=== PATIENT | female | born 1945 | race African-American/Black ===

== ENCOUNTER 2018-07-17 10:28 | Inpatient (IN) | payer OTHER ==
[2018-07-17 11:09] LABS: ADD MAN DIFF? NO
[2018-07-17 11:11] LABS: ABNORMAL IP MESSAGE 1; BASOPHILS % 0.4 % (0.0-2.0); EOSINOPHILS # 0.2 10^3/ul (0.0-0.5); EOSINOPHILS % 2.9 % (0.0-7.0); HEMATOCRIT 32.6 % (37.0-47.0); LYMPHOCYTES # 0.5 10^3/ul (0.8-2.9); LYMPHOCYTES % 7.9 % (15.0-51.0); MEAN CORPUSCULAR HEMOGLOBIN 30.4 pg (29.0-33.0); MEAN CORPUSCULAR HGB CONC 30.7 g/dl (32.0-37.0); MEAN CORPUSCULAR VOLUME 99.1 fl (82.0-101.0); MEAN PLATELET VOLUME 10.9 fl (7.4-10.4); MONOCYTES % 13.9 % (0.0-11.0); NEUTROPHIL # 5.1 10^3/ul (1.6-7.5); NEUTROPHILS % 74.6 % (39.0-77.0); PLATELET COUNT 152 10^3/UL (140-415); RED BLOOD COUNT 3.29 10^6/ul (4.20-5.40); RED CELL DISTRIBUTION WIDTH 16.8 % (11.5-14.5)
[2018-07-17 11:11] LABS: WHITE BLOOD COUNT 6.9 10^3/ul (4.8-10.8)
[2018-07-17 11:12] LABS: POSITIVE DIFF @See below
[2018-07-17 11:32] LABS: ALANINE AMINOTRANSFERASE 36 IU/L (13-69); ALBUMIN 3.4 g/dl (3.3-4.9); ALKALINE PHOSPHATASE 63 IU/L (42-121); ANION GAP 4 (5-13); ASPARTATE AMINO TRANSFERASE 33 IU/L (15-46); BILIRUBIN,INDIRECT 0.6 mg/dl (0-1.1); BILIRUBIN,TOTAL 0.6 mg/dl (0.2-1.3); BLOOD UREA NITROGEN 23 mg/dl (7-20); CARBON DIOXIDE 31 mmol/L (21-31); CHLORIDE 101 mmol/L (97-110); CREATININE 0.96 mg/dl (0.44-1.00); GLUCOSE 97 mg/dl (70-220); POTASSIUM 5.1 mmol/L (3.5-5.1); SODIUM 136 mmol/L (135-144)
[2018-07-17 11:37] LABS: INR 1.04; PROTIME 13.7 Sec (11.9-14.9); PT RATIO 1.1
[2018-07-17 11:38] LABS: PARTIAL THROMBOPLASTIN TIME 27.4 Sec (23.0-35.0)
[2018-07-17 11:42] LABS: TROPONIN-I 0.059 ng/ml (0.000-0.120)
[2018-07-17] MEDS ORDERED: LIDOCAINE 1% (MPF) 5 ML VIAL SC (12:00)
[2018-07-17] MEDS: CEFEPIME 2GM/50 ML (PMX) 50 ML IVPB (12:42)
[2018-07-17] MEDS: VANCOMYCIN 1 GM (PMX) 250 ML IVPB (13:14)
[2018-07-17] MEDS ORDERED: ONDANSETRON 4 MG INJ IV ×2 (13:30→15:00)
[2018-07-17] MEDS ORDERED: ACETAMINOPHEN 325 MG TAB PO ×3 (13:30→15:00)
[2018-07-17 13:39] LABS: UR CLARITY HAZY (CLEAR); UR COLOR YELLOW (YELLOW); URINE PH (Dip) 7 (5.0-9.0); URINE SPECIFIC GRAVITY (Dip) 1.005 (1.003-1.030)
[2018-07-17 13:40] LABS: ADD UMIC YES; UR ASCORBIC ACID NEGATIVE (NEGATIVE); UR BILIRUBIN (Dip) NEGATIVE (NEGATIVE); UR BLOOD (Dip) NEGATIVE (NEGATIVE); UR GLUCOSE (Dip) NEGATIVE (NEGATIVE); UR KETONES (Dip) NEGATIVE (NEGATIVE); UR LEUKOCYTE ESTERASE (Dip) NEGATIVE Leu/ul (NEGATIVE); UR NITRITE (Dip) NEGATIVE (NEGATIVE); UR UROBILINOGEN (Dip) NEGATIVE (NEGATIVE)
[2018-07-17 13:42] LABS: UR TOTAL PROTEIN (Dip) TRACE mg/dl (NEGATIVE)
[2018-07-17 13:54] LABS: UR SQUAMOUS EPITHELIAL CELL RARE /HPF (FEW)
[2018-07-17] MEDS ORDERED: ALBUTEROL/IPRATROPIUM (NEB) 3 ML AMP INH (14:00)
[2018-07-17] MEDS ORDERED: NON-FORMULARY/PATIENT OWN MED (Salmeterol Xinaf-Fluticasone* (Advair HFA*) 2 INH) IH (14:00)
[2018-07-17] MEDS ORDERED: BISACODYL (EC) 5 MG TAB PO (14:00)
[2018-07-17] MEDS ORDERED: LEVOFLOXACIN 750MG/D5W (PMX) 150 ML IVPB (14:30)
[2018-07-17] MEDS ORDERED: NACL 0.9% 3 ML SYG IV (15:00)
[2018-07-17] MEDS ORDERED: DOCUSATE SODIUM 100 MG CAP PO (15:00)
[2018-07-17] MEDS ORDERED: BISACODYL 10 MG SUPP PR (15:00)
[2018-07-17] MEDS ORDERED: MAGNESIUM HYDROXIDE 30ML CUP PO (15:00)
[2018-07-17] MEDS ORDERED: ACETAMINOPHEN 650 MG SUPP PR (15:00)
[2018-07-17] MEDS: hydrALAzine 20 MG INJ IV (15:48)
[2018-07-17] MEDS: HYDROCODONE/APAP (5/325) TAB PO (17:22)
[2018-07-17] MEDS: ALBUTEROL/IPRATROPIUM (NEB) 3 ML AMP HHN (17:39)
[2018-07-17] MEDS: LEVOFLOXACIN 750MG/D5W (PMX) 150 ML IVPB (18:37)
[2018-07-17] MEDS: morphine 2 MG INJ IV (19:58)
[2018-07-17] MEDS: ARFORMOTEROL TARTRATE 15MCG/2 ML AMP INH (20:39)
[2018-07-17] MEDS: BUDESONIDE (NEB) 0.5MG/2ML AMP INH (20:39)
[2018-07-17] MEDS: SENNA TAB PO (21:00)
[2018-07-17] MEDS: ONDANSETRON 4 MG TAB PO (21:29)
[2018-07-17] MEDS: traZODone 50 MG TAB PO (21:29)
[2018-07-17] MEDS: GABAPENTIN 300 MG CAP PO (21:30)
[2018-07-17] MEDS: ATORVASTATIN 80 MG TAB PO (21:30)
[2018-07-17] MEDS: BACLOFEN 10 MG TAB PO (21:30)
[2018-07-17] MEDS: APIXABAN 5 MG TABLET PO (21:30)
[2018-07-17 22:13] LABS: LACTIC ACID 0.9 mmol/L (0.5-2.0)
[2018-07-17] MEDS: DIPHENHYDRAMINE 25 MG CAP PO (23:32)
[2018-07-18] MEDS: GUAIFENESIN 20 MG/ML 5ML CUP PO (00:53)
[2018-07-18] MEDS: ALBUTEROL/IPRATROPIUM (NEB) 3 ML AMP HHN (01:33)
[2018-07-18] MEDS: PANTOPRAZOLE (EC) 40 MG TAB PO (06:26)
[2018-07-18] MEDS: HYDROCODONE/APAP (5/325) TAB PO ×2 (06:29→12:29)
[2018-07-18 07:13] LABS: ALANINE AMINOTRANSFERASE 33 IU/L (13-69); ALKALINE PHOSPHATASE 57 IU/L (42-121); ANION GAP 5 (5-13); ASPARTATE AMINO TRANSFERASE 36 IU/L (15-46); BILIRUBIN,INDIRECT 0.5 mg/dl (0-1.1); BILIRUBIN,TOTAL 0.5 mg/dl (0.2-1.3); BLOOD UREA NITROGEN 29 mg/dl (7-20); CALCIUM 8.8 mg/dl (8.4-10.2); CARBON DIOXIDE 26 mmol/L (21-31); CHLORIDE 106 mmol/L (97-110); CREATININE 0.89 mg/dl (0.44-1.00); GLUCOSE 84 mg/dl (70-220); MAGNESIUM 2.3 mg/dl (1.7-2.5); PHOSPHORUS 4.6 mg/dl (2.5-4.9); POTASSIUM 5.6 mmol/L (3.5-5.1); SODIUM 137 mmol/L (135-144)
[2018-07-18 07:14] LABS: ALBUMIN/GLOBULIN RATIO 1.25; CHOL/HDL RATIO 2.3 RATIO; CHOLESTEROL 143 mg/dl (100-200); HDL CHOLESTEROL 60 mg/dl (33-92); LDL CHOLESTEROL,CALCULATED 72 mg/dl; TOTAL PROTEIN 5.4 g/dl (6.1-8.1); TRIGLYCERIDES 55 mg/dl (0-149)
[2018-07-18 07:20] LABS: HEMOGLOBIN A1C 5.7 % (0-5.9)
[2018-07-18 07:29] LABS: FREE THYROXINE INDEX (Calc) 2.46 ug/ml (0.65-3.89); T3 UPTAKE 38.4 % (23.5-40.5); T4 (THYROXINE) 6.4 ug/dl (5.5-11.0)
[2018-07-18 07:43] LABS: THYROID STIMULATING HORMONE 0.926 MIU/L (0.465-4.680)
[2018-07-18] MEDS: AMLODIPINE 10 MG TAB PO (08:31)
[2018-07-18] MEDS: APIXABAN 5 MG TABLET PO ×2 (08:32→21:43)
[2018-07-18] MEDS: GABAPENTIN 300 MG CAP PO ×3 (08:32→21:47)
[2018-07-18] MEDS: CITALOPRAM 20 MG TAB PO (08:33)
[2018-07-18] MEDS: BACLOFEN 10 MG TAB PO ×3 (08:34→21:44)
[2018-07-18] MEDS: ASPIRIN (EC) 81 MG TAB PO (08:34)
[2018-07-18] MEDS: LOSARTAN 25 MG TAB PO (08:34)
[2018-07-18] MEDS: morphine 2 MG INJ IV (08:56)
[2018-07-18] MEDS: ARFORMOTEROL TARTRATE 15MCG/2 ML AMP INH ×2 (09:00→21:00)
[2018-07-18] MEDS ORDERED: LEVOFLOXACIN 750MG/D5W (PMX) 150 ML IVPB (09:00)
[2018-07-18] MEDS: BUDESONIDE (NEB) 0.5MG/2ML AMP INH ×2 (09:10→21:00)
[2018-07-18] MEDS: SODIUM POLYSTYRENE 15 GM KIT (POWDER + SORBITOL) PO (14:58)
[2018-07-18] MEDS: BALSAM PERU/CASTOR OIL 60 GM TUBE TOP (14:58)
[2018-07-18 19:22] LABS: POTASSIUM 5.2 mmol/L (3.5-5.1)
[2018-07-18] MEDS: SENNA TAB PO (21:44)
[2018-07-18] MEDS: ATORVASTATIN 80 MG TAB PO (21:44)
[2018-07-18] MEDS: traZODone 50 MG TAB PO (21:45)
[2018-07-19] MEDS: hydrALAzine 20 MG INJ IV (03:39)
[2018-07-19] MEDS: morphine 2 MG INJ IV ×2 (05:10→09:51)
[2018-07-19] MEDS: PANTOPRAZOLE (EC) 40 MG TAB PO (06:13)
[2018-07-19] MEDS: ARFORMOTEROL TARTRATE 15MCG/2 ML AMP INH ×2 (08:16→20:38)
[2018-07-19] MEDS: BUDESONIDE (NEB) 0.5MG/2ML AMP INH ×2 (08:16→20:38)
[2018-07-19] MEDS: LOSARTAN 25 MG TAB PO (09:38)
[2018-07-19] MEDS: ASPIRIN (EC) 81 MG TAB PO (09:38)
[2018-07-19] MEDS: CITALOPRAM 20 MG TAB PO (09:38)
[2018-07-19] MEDS: GABAPENTIN 300 MG CAP PO ×3 (09:38→21:52)
[2018-07-19] MEDS: AMLODIPINE 10 MG TAB PO (09:39)
[2018-07-19] MEDS: BACLOFEN 10 MG TAB PO ×3 (09:39→21:52)
[2018-07-19] MEDS: APIXABAN 5 MG TABLET PO ×2 (09:40→21:52)
[2018-07-19] MEDS: BALSAM PERU/CASTOR OIL 60 GM TUBE TOP (09:44)
[2018-07-19 12:02] LABS: ADD MAN DIFF? NO
[2018-07-19 12:05] LABS: ABNORMAL IP MESSAGE 1; BASOPHILS % 0.4 % (0.0-2.0); EOSINOPHILS # 0.4 10^3/ul (0.0-0.5); EOSINOPHILS % 4.7 % (0.0-7.0); HEMATOCRIT 32.5 % (37.0-47.0); HEMOGLOBIN 9.8 g/dl (12.0-16.0); LYMPHOCYTES # 0.6 10^3/ul (0.8-2.9); LYMPHOCYTES % 7.8 % (15.0-51.0); MEAN CORPUSCULAR HEMOGLOBIN 30.1 pg (29.0-33.0); MEAN CORPUSCULAR HGB CONC 30.2 g/dl (32.0-37.0); MEAN CORPUSCULAR VOLUME 99.7 fl (82.0-101.0); MONOCYTE # 1.2 10^3/ul (0.3-0.9); MONOCYTES % 16.2 % (0.0-11.0); NEUTROPHIL # 5.3 10^3/ul (1.6-7.5); NEUTROPHILS % 70.4 % (39.0-77.0); PLATELET COUNT 160 10^3/UL (140-415); RED BLOOD COUNT 3.26 10^6/ul (4.20-5.40)
[2018-07-19 12:05] LABS: WHITE BLOOD COUNT 7.5 10^3/ul (4.8-10.8)
[2018-07-19 12:07] LABS: POSITIVE DIFF @See below
[2018-07-19 12:30] LABS: ANION GAP 5 (5-13); BLOOD UREA NITROGEN 31 mg/dl (7-20); CARBON DIOXIDE 29 mmol/L (21-31); CHLORIDE 106 mmol/L (97-110); CREATININE 1.07 mg/dl (0.44-1.00); GLUCOSE 69 mg/dl (70-220); POTASSIUM 4.7 mmol/L (3.5-5.1); SODIUM 140 mmol/L (135-144)
[2018-07-19] MEDS: GUAIFENESIN 20 MG/ML 5ML CUP PO ×2 (12:35→22:09)
[2018-07-19] MEDS: ALBUTEROL/IPRATROPIUM (NEB) 3 ML AMP INH ×2 (13:29→20:38)
[2018-07-19] MEDS: HYDROCODONE/APAP (5/325) TAB PO (15:19)
[2018-07-19] MEDS: LEVOFLOXACIN 750MG/D5W (PMX) 150 ML IVPB (17:41)
[2018-07-19] MEDS: SENNA TAB PO (21:49)
[2018-07-19] MEDS: ATORVASTATIN 80 MG TAB PO (21:51)
[2018-07-19] MEDS: traZODone 50 MG TAB PO (21:52)
[2018-07-20] MEDS: hydrALAzine 20 MG INJ IV (02:43)
[2018-07-20] MEDS: ALBUTEROL/IPRATROPIUM (NEB) 3 ML AMP HHN (05:14)
[2018-07-20] MEDS: PANTOPRAZOLE (EC) 40 MG TAB PO (06:09)
[2018-07-20 06:21] LABS: ADD MAN DIFF? NO
[2018-07-20 06:28] LABS: WHITE BLOOD COUNT 5.7 10^3/ul (4.8-10.8)
[2018-07-20 06:28] LABS: BASOPHILS % 0.7 % (0.0-2.0); EOSINOPHILS # 0.3 10^3/ul (0.0-0.5); EOSINOPHILS % 4.6 % (0.0-7.0); HEMATOCRIT 32.5 % (37.0-47.0); HEMOGLOBIN 9.8 g/dl (12.0-16.0); LYMPHOCYTES # 0.7 10^3/ul (0.8-2.9); LYMPHOCYTES % 11.9 % (15.0-51.0); MEAN CORPUSCULAR HEMOGLOBIN 30.3 pg (29.0-33.0); MEAN CORPUSCULAR HGB CONC 30.2 g/dl (32.0-37.0); MEAN CORPUSCULAR VOLUME 100.6 fl (82.0-101.0); MEAN PLATELET VOLUME 11.3 fl (7.4-10.4); MONOCYTE # 0.9 10^3/ul (0.3-0.9); MONOCYTES % 16.1 % (0.0-11.0); NEUTROPHIL # 3.8 10^3/ul (1.6-7.5); NEUTROPHILS % 66.3 % (39.0-77.0); PLATELET COUNT 155 10^3/UL (140-415); RED BLOOD COUNT 3.23 10^6/ul (4.20-5.40)
[2018-07-20 07:04] LABS: ANION GAP 4 (5-13); BLOOD UREA NITROGEN 30 mg/dl (7-20); CALCIUM 8.7 mg/dl (8.4-10.2); CARBON DIOXIDE 29 mmol/L (21-31); CHLORIDE 107 mmol/L (97-110); CREATININE 1.04 mg/dl (0.44-1.00); GLUCOSE 77 mg/dl (70-220); POTASSIUM 4.9 mmol/L (3.5-5.1); SODIUM 140 mmol/L (135-144)
[2018-07-20] MEDS: ALBUTEROL/IPRATROPIUM (NEB) 3 ML AMP INH ×3 (08:00→20:45)
[2018-07-20] MEDS: ARFORMOTEROL TARTRATE 15MCG/2 ML AMP INH ×2 (08:07→20:45)
[2018-07-20] MEDS: BUDESONIDE (NEB) 0.5MG/2ML AMP INH ×2 (08:07→20:47)
[2018-07-20] MEDS: morphine 2 MG INJ IV ×2 (08:26→13:24)
[2018-07-20] MEDS: APIXABAN 5 MG TABLET PO ×2 (08:28→20:01)
[2018-07-20] MEDS: ASPIRIN (EC) 81 MG TAB PO (08:29)
[2018-07-20] MEDS: AMLODIPINE 10 MG TAB PO (08:29)
[2018-07-20] MEDS: GABAPENTIN 300 MG CAP PO ×3 (08:29→20:04)
[2018-07-20] MEDS: CITALOPRAM 20 MG TAB PO (08:30)
[2018-07-20] MEDS: BACLOFEN 10 MG TAB PO ×3 (08:30→20:01)
[2018-07-20] MEDS: LOSARTAN 25 MG TAB PO (08:30)
[2018-07-20] MEDS: HYDROCODONE/APAP (5/325) TAB PO ×2 (09:24→20:05)
[2018-07-20] MEDS: BALSAM PERU/CASTOR OIL 60 GM TUBE TOP (10:35)
[2018-07-20] MEDS: GUAIFENESIN 20 MG/ML 5ML CUP PO ×2 (13:20→17:13)
[2018-07-20] MEDS: ATORVASTATIN 80 MG TAB PO (20:01)
[2018-07-20] MEDS: traZODone 50 MG TAB PO (20:01)
[2018-07-20] MEDS: SENNA TAB PO (20:02)
[2018-07-20] MEDS: BENZONATATE 100 MG CAP PO (20:08)
[2018-07-21] MEDS: hydrALAzine 20 MG INJ IV (03:02)
[2018-07-21] MEDS: HYDROCODONE/APAP (5/325) TAB PO ×2 (03:18→09:47)
[2018-07-21] MEDS: ALBUTEROL/IPRATROPIUM (NEB) 3 ML AMP HHN (03:32)
[2018-07-21] MEDS: PANTOPRAZOLE (EC) 40 MG TAB PO (06:10)
[2018-07-21] MEDS: ALBUTEROL/IPRATROPIUM (NEB) 3 ML AMP INH ×3 (08:55→19:29)
[2018-07-21] MEDS: AMLODIPINE 10 MG TAB PO (09:00)
[2018-07-21] MEDS: LOSARTAN 25 MG TAB PO (09:00)
[2018-07-21] MEDS: BUDESONIDE (NEB) 0.5MG/2ML AMP INH ×2 (09:04→19:29)
[2018-07-21] MEDS: ARFORMOTEROL TARTRATE 15MCG/2 ML AMP INH ×2 (09:14→19:29)
[2018-07-21] MEDS: ASPIRIN (EC) 81 MG TAB PO (09:31)
[2018-07-21] MEDS: CITALOPRAM 20 MG TAB PO (09:32)
[2018-07-21] MEDS: APIXABAN 5 MG TABLET PO ×2 (09:32→21:00)
[2018-07-21] MEDS: BACLOFEN 10 MG TAB PO ×3 (09:32→21:00)
[2018-07-21] MEDS: GABAPENTIN 300 MG CAP PO ×3 (09:32→21:00)
[2018-07-21] MEDS: BALSAM PERU/CASTOR OIL 60 GM TUBE TOP (09:35)
[2018-07-21 09:41] LABS: ADD MAN DIFF? NO
[2018-07-21 09:46] LABS: WHITE BLOOD COUNT 6.1 10^3/ul (4.8-10.8)
[2018-07-21 09:46] LABS: BASOPHILS % 0.5 % (0.0-2.0); EOSINOPHILS # 0.3 10^3/ul (0.0-0.5); EOSINOPHILS % 4.1 % (0.0-7.0); HEMATOCRIT 36.4 % (37.0-47.0); HEMOGLOBIN 10.7 g/dl (12.0-16.0); LYMPHOCYTES # 0.6 10^3/ul (0.8-2.9); MEAN CORPUSCULAR HEMOGLOBIN 30.2 pg (29.0-33.0); MEAN CORPUSCULAR HGB CONC 29.4 g/dl (32.0-37.0); MEAN CORPUSCULAR VOLUME 102.8 fl (82.0-101.0); MEAN PLATELET VOLUME 11.7 fl (7.4-10.4); MONOCYTE # 0.8 10^3/ul (0.3-0.9); MONOCYTES % 13.1 % (0.0-11.0); NEUTROPHIL # 4.4 10^3/ul (1.6-7.5); PLATELET COUNT 173 10^3/UL (140-415); RED BLOOD COUNT 3.54 10^6/ul (4.20-5.40); RED CELL DISTRIBUTION WIDTH 16.5 % (11.5-14.5)
[2018-07-21 10:05] LABS: ANION GAP 9 (5-13); BLOOD UREA NITROGEN 40 mg/dl (7-20); CARBON DIOXIDE 26 mmol/L (21-31); CHLORIDE 102 mmol/L (97-110); CREATININE 1.35 mg/dl (0.44-1.00); GLUCOSE 76 mg/dl (70-220); POTASSIUM 5.2 mmol/L (3.5-5.1); SODIUM 137 mmol/L (135-144)
[2018-07-21] MEDS: SOD CHLORIDE 0.9% 1,000 ML IV (12:27)
[2018-07-21] MEDS: METHYLPREDNISOLONE 40 MG INJ IV ×2 (14:16→22:37)
[2018-07-21] MEDS: LEVOFLOXACIN 750 MG TABLET PO ×2 (17:31→17:36)
[2018-07-21] MEDS ORDERED: IOHEXOL 14.3 MG(I)/ML (ADULT) BTL PO (20:00)
[2018-07-21] MEDS: morphine 2 MG INJ IV (20:03)
[2018-07-21] MEDS: traZODone 50 MG TAB PO (21:00)
[2018-07-21] MEDS: ATORVASTATIN 80 MG TAB PO (21:00)
[2018-07-21] MEDS: SENNA TAB PO (21:00)
[2018-07-21 21:08] LABS: CARCINOEMBRYONIC ANTIGEN 7.4 ng/ml (0.0-5.0)
[2018-07-22 00:15] LABS: ADD UMIC NO; UR ASCORBIC ACID NEGATIVE (NEGATIVE); UR BILIRUBIN (Dip) NEGATIVE (NEGATIVE); UR BLOOD (Dip) NEGATIVE (NEGATIVE); UR BUDDING YEAST MODERATE /HPF (NONE SEEN); UR CLARITY SLIGHTLY CLOUDY (CLEAR); UR COLOR YELLOW (YELLOW); UR GLUCOSE (Dip) NEGATIVE (NEGATIVE); UR KETONES (Dip) NEGATIVE (NEGATIVE); UR LEUKOCYTE ESTERASE (Dip) NEGATIVE Leu/ul (NEGATIVE); UR NITRITE (Dip) NEGATIVE (NEGATIVE); UR RBC 1 /HPF (0-5); UR SPECIFIC GRAVITY (Dip) 1.016 (1.003-1.030); UR SQUAMOUS EPITHELIAL CELL FEW /HPF (FEW); UR TOTAL PROTEIN (Dip) NEGATIVE (NEGATIVE); UR UROBILINOGEN (Dip) NEGATIVE (NEGATIVE); UR WBC 5 /HPF (0-5)
[2018-07-22 01:40] LABS: CREATININE,URINE RANDOM 129.97 mg/dl (20-320)
[2018-07-22 01:40] LABS: SODIUM,URINE RANDOM 23 mmol/L (30-90)
[2018-07-22] MEDS: SOD CHLORIDE 0.9% 1,000 ML IV ×2 (01:48→21:28)
[2018-07-22] MEDS: morphine 2 MG INJ IV ×2 (02:35→14:28)
[2018-07-22] MEDS: hydrALAzine 20 MG INJ IV ×3 (02:40→19:49)
[2018-07-22] MEDS: LORAZEPAM 2 MG INJ IV ×2 (03:20→21:21)
[2018-07-22] MEDS: PANTOPRAZOLE (EC) 40 MG TAB PO (06:13)
[2018-07-22] MEDS: METHYLPREDNISOLONE 40 MG INJ IV ×3 (06:13→21:22)
[2018-07-22 07:19] LABS: ADD MAN DIFF? NO
[2018-07-22 07:28] LABS: ABNORMAL IP MESSAGE 1; BASOPHILS % 0.2 % (0.0-2.0); HEMATOCRIT 32.2 % (37.0-47.0); HEMOGLOBIN 9.8 g/dl (12.0-16.0); LYMPHOCYTES # 0.5 10^3/ul (0.8-2.9); LYMPHOCYTES % 8.8 % (15.0-51.0); MEAN CORPUSCULAR HEMOGLOBIN 29.8 pg (29.0-33.0); MEAN CORPUSCULAR HGB CONC 30.4 g/dl (32.0-37.0); MEAN CORPUSCULAR VOLUME 97.9 fl (82.0-101.0); MEAN PLATELET VOLUME 10.8 fl (7.4-10.4); MONOCYTE # 0.2 10^3/ul (0.3-0.9); MONOCYTES % 3.3 % (0.0-11.0); NEUTROPHIL # 5.2 10^3/ul (1.6-7.5); NEUTROPHILS % 87.4 % (39.0-77.0); PLATELET COUNT 161 10^3/UL (140-415); RED BLOOD COUNT 3.29 10^6/ul (4.20-5.40); RED CELL DISTRIBUTION WIDTH 16.1 % (11.5-14.5)
[2018-07-22 07:40] LABS: POSITIVE DIFF @See below
[2018-07-22 07:47] LABS: ANION GAP 6 (5-13); BLOOD UREA NITROGEN 35 mg/dl (7-20); CARBON DIOXIDE 26 mmol/L (21-31); CHLORIDE 106 mmol/L (97-110); CREATININE 0.97 mg/dl (0.44-1.00); GLUCOSE 131 mg/dl (70-220); POTASSIUM 4.8 mmol/L (3.5-5.1); SODIUM 138 mmol/L (135-144)
[2018-07-22] MEDS: ALBUTEROL/IPRATROPIUM (NEB) 3 ML AMP INH ×3 (08:04→19:17)
[2018-07-22] MEDS: BUDESONIDE (NEB) 0.5MG/2ML AMP INH ×2 (08:04→19:17)
[2018-07-22] MEDS: ARFORMOTEROL TARTRATE 15MCG/2 ML AMP INH ×2 (08:10→19:17)
[2018-07-22] MEDS: GABAPENTIN 300 MG CAP PO ×3 (11:19→21:15)
[2018-07-22] MEDS: APIXABAN 5 MG TABLET PO ×2 (11:19→21:12)
[2018-07-22] MEDS: ASPIRIN (EC) 81 MG TAB PO (11:19)
[2018-07-22] MEDS: BACLOFEN 10 MG TAB PO ×3 (11:20→21:12)
[2018-07-22] MEDS: CITALOPRAM 20 MG TAB PO (11:21)
[2018-07-22] MEDS: AMLODIPINE 10 MG TAB PO (11:21)
[2018-07-22] MEDS: BALSAM PERU/CASTOR OIL 60 GM TUBE TOP (11:22)
[2018-07-22] MEDS: GUAIFENESIN 20 MG/ML 5ML CUP PO (15:26)
[2018-07-22] MEDS: SENNA TAB PO (21:12)
[2018-07-22] MEDS: ATORVASTATIN 80 MG TAB PO (21:12)
[2018-07-22] MEDS: traZODone 50 MG TAB PO (21:14)
[2018-07-23] MEDS: HYDROCODONE/APAP (5/325) TAB PO ×3 (03:48→19:39)
[2018-07-23] MEDS: morphine 2 MG INJ IV (04:44)
[2018-07-23] MEDS: ALBUTEROL/IPRATROPIUM (NEB) 3 ML AMP HHN ×3 (05:09→16:15)
[2018-07-23] MEDS: METHYLPREDNISOLONE 40 MG INJ IV ×3 (06:12→22:00)
[2018-07-23] MEDS: PANTOPRAZOLE (EC) 40 MG TAB PO (06:12)
[2018-07-23] MEDS: ALBUTEROL/IPRATROPIUM (NEB) 3 ML AMP INH ×3 (08:00→19:43)
[2018-07-23] MEDS: BUDESONIDE (NEB) 0.5MG/2ML AMP INH ×2 (08:00→19:43)
[2018-07-23] MEDS: ARFORMOTEROL TARTRATE 15MCG/2 ML AMP INH ×2 (08:00→19:43)
[2018-07-23 08:08] LABS: ADD MAN DIFF? NO
[2018-07-23 08:23] LABS: ABNORMAL IP MESSAGE 1; HEMATOCRIT 33.6 % (37.0-47.0); HEMOGLOBIN 10.3 g/dl (12.0-16.0); LYMPHOCYTES # 0.4 10^3/ul (0.8-2.9); LYMPHOCYTES % 7.8 % (15.0-51.0); MEAN CORPUSCULAR HEMOGLOBIN 29.7 pg (29.0-33.0); MEAN CORPUSCULAR HGB CONC 30.7 g/dl (32.0-37.0); MEAN CORPUSCULAR VOLUME 96.8 fl (82.0-101.0); MEAN PLATELET VOLUME 10.9 fl (7.4-10.4); MONOCYTE # 0.6 10^3/ul (0.3-0.9); MONOCYTES % 11.2 % (0.0-11.0); NEUTROPHIL # 4.1 10^3/ul (1.6-7.5); NEUTROPHILS % 80.4 % (39.0-77.0); PLATELET COUNT 149 10^3/UL (140-415); RED BLOOD COUNT 3.47 10^6/ul (4.20-5.40); RED CELL DISTRIBUTION WIDTH 16.7 % (11.5-14.5)
[2018-07-23 08:23] LABS: WHITE BLOOD COUNT 5.1 10^3/ul (4.8-10.8)
[2018-07-23] MEDS: hydrALAzine 20 MG INJ IV (08:23)
[2018-07-23 08:25] LABS: POSITIVE DIFF @See below
[2018-07-23 08:47] LABS: ANION GAP 7 (5-13); BLOOD UREA NITROGEN 35 mg/dl (7-20); CALCIUM 9.1 mg/dl (8.4-10.2); CARBON DIOXIDE 26 mmol/L (21-31); CHLORIDE 105 mmol/L (97-110); CREATININE 0.84 mg/dl (0.44-1.00); GLUCOSE 140 mg/dl (70-220); POTASSIUM 4.8 mmol/L (3.5-5.1); SODIUM 138 mmol/L (135-144)
[2018-07-23] MEDS: CITALOPRAM 20 MG TAB PO (09:04)
[2018-07-23] MEDS: ASPIRIN (EC) 81 MG TAB PO (09:05)
[2018-07-23] MEDS: APIXABAN 5 MG TABLET PO ×2 (09:05→21:08)
[2018-07-23] MEDS: GABAPENTIN 300 MG CAP PO ×3 (09:05→21:07)
[2018-07-23] MEDS: BACLOFEN 10 MG TAB PO ×3 (09:05→21:07)
[2018-07-23] MEDS: AMLODIPINE 10 MG TAB PO (09:05)
[2018-07-23] MEDS: BALSAM PERU/CASTOR OIL 60 GM TUBE TOP (09:06)
[2018-07-23] MEDS: traMADol 50 MG TAB PO (12:16)
[2018-07-23] MEDS: BENZONATATE 100 MG CAP PO ×2 (13:40→21:07)
[2018-07-23] MEDS: GUAIFENESIN 20 MG/ML 5ML CUP PO (19:48)
[2018-07-23] MEDS ORDERED: LORAZEPAM 0.5 MG TAB PO (20:00)
[2018-07-23] MEDS: traZODone 50 MG TAB PO (21:07)
[2018-07-23] MEDS: ATORVASTATIN 80 MG TAB PO (21:07)
[2018-07-23] MEDS: SENNA TAB PO (21:07)
[2018-07-23] MEDS: LEVOFLOXACIN 750 MG TABLET PO (21:14)
[2018-07-23] MEDS: SOD CHLORIDE 0.9% 1,000 ML IV (21:28)
[2018-07-25 14:57] LABS: CREATININE, RANDOM URINE 121 mg/dL (20-275); MICROALBUMIN/CREATININE RATIO 17 (<30)
== END 2018-07-23 22:45 | DRG 193 ==
LOC: PP2 22:17 → E/R 10:28 → 5EC 07-18 01:04 → PP2 07-18 01:04 → 5EC 13:27 → PP2 07-18 01:04 → 5EC 07-18 01:12 → PP2 16:15
DX: J18.9 Pneumonia, unspecified organism (principal); J96.21 Acute and chronic respiratory failure with hypoxia; N17.9 Acute kidney failure, unspecified; J44.1 Chronic obstructive pulmonary disease with (acute) exacerbation; Z95.0 Presence of cardiac pacemaker; J44.9 Chronic obstructive pulmonary disease, unspecified; I10 Essential (primary) hypertension; F32.9 Major depressive disorder, single episode, unspecified; E78.5 Hyperlipidemia, unspecified; I25.10 Atherosclerotic heart disease of native coronary artery without angina pectoris; K21.9 Gastro-esophageal reflux disease without esophagitis; Z87.891 Personal history of nicotine dependence; E87.5 Hyperkalemia; R91.8 Other nonspecific abnormal finding of lung field; J20.9 Acute bronchitis, unspecified; Z85.118 Personal history of other malignant neoplasm of bronchus and lung; I69.931 Monoplegia of upper limb following unspecified cerebrovascular disease affecting right dominant side
CPT/HCPCS: 71045; 71250; 73080-LT; 73110-LT; 74176; 80048; 80053; 80061; 81001; 81003; 82043; 82378; 83036; 83605; 83735; 84100; 84132; 84155; 84300; 84436; 84443; 84479; 84484; 85025; 85610; 85730; 87040-91; 87081; 87086; 92610; 93005; 93306; 94640; 94664; 94667; 94668; 96374; 96375; 97116; 97162; 97530; 99285-25

== ENCOUNTER 2018-09-15 20:40 | Inpatient (IN) | payer MEDICARE, OTHER ==
[2018-09-15 21:37] LABS: ADD MAN DIFF? NO
[2018-09-15 21:40] LABS: BASOPHILS % 0.7 % (0.0-2.0); EOSINOPHILS # 0.8 10^3/ul (0.0-0.5); EOSINOPHILS % 13.2 % (0.0-7.0); HEMATOCRIT 32.8 % (37.0-47.0); HEMOGLOBIN 9.7 g/dl (12.0-16.0); LYMPHOCYTES # 0.8 10^3/ul (0.8-2.9); LYMPHOCYTES % 13.8 % (15.0-51.0); MEAN CORPUSCULAR HEMOGLOBIN 27.8 pg (29.0-33.0); MEAN CORPUSCULAR HGB CONC 29.6 g/dl (32.0-37.0); MEAN PLATELET VOLUME 11.3 fl (7.4-10.4); MONOCYTE # 0.7 10^3/ul (0.3-0.9); MONOCYTES % 11.4 % (0.0-11.0); NEUTROPHIL # 3.7 10^3/ul (1.6-7.5); NEUTROPHILS % 60.6 % (39.0-77.0); NUCLEATED RED BLOOD CELLS% 0.3 /100WBC (0.0-0.0); PLATELET COUNT 145 10^3/UL (140-415); RED BLOOD COUNT 3.49 10^6/ul (4.20-5.40); RED CELL DISTRIBUTION WIDTH 17.6 % (11.5-14.5)
[2018-09-15 21:40] LABS: WHITE BLOOD COUNT 6.1 10^3/ul (4.8-10.8)
[2018-09-15 21:58] LABS: ANION GAP 4 (5-13); BLOOD UREA NITROGEN 31 mg/dl (7-20); CALCIUM 8.8 mg/dl (8.4-10.2); CARBON DIOXIDE 28 mmol/L (21-31); CHLORIDE 110 mmol/L (97-110); CREATININE 0.85 mg/dl (0.44-1.00); GLUCOSE 91 mg/dl (70-220); SODIUM 142 mmol/L (135-144)
[2018-09-15 22:10] LABS: TROPONIN-I 0.061 ng/ml (0.000-0.120)
[2018-09-15] MEDS ORDERED: ACETAMINOPHEN 325 MG TAB PO (23:00)
[2018-09-15] MEDS ORDERED: ONDANSETRON 4 MG INJ IV (23:00)
[2018-09-15] MEDS: CEFEPIME 1GM/50 ML (PMX) 50 ML IVPB (23:06)
[2018-09-15] MEDS: AMLODIPINE 10 MG TAB PO (23:50)
[2018-09-15] MEDS: VANCOMYCIN 1 GM (PMX) 250 ML IVPB (23:53)
[2018-09-16] MEDS: ALBUTEROL 0.5% (NEB) 2.5 MG/0.5 ML AMP INH (01:50)
[2018-09-16] MEDS: hydrALAzine 20 MG INJ IV (01:58)
[2018-09-16] MEDS ORDERED: NACL 0.9% 3 ML SYG IV (02:00)
[2018-09-16] MEDS ORDERED: NON-FORMULARY/PATIENT OWN MED (Salmeterol Xinaf-Fluticasone* (Advair HFA*) 2 INH) IH (02:00)
[2018-09-16] MEDS: HALOPERIDOL 5 MG INJ IM (04:42)
[2018-09-16] MEDS: LORAZEPAM 2 MG INJ IV (05:35)
[2018-09-16 06:26] LABS: ADD MAN DIFF? NO
[2018-09-16 06:32] LABS: WHITE BLOOD COUNT 18.5 10^3/ul (4.8-10.8)
[2018-09-16 06:32] LABS: ABNORMAL IP MESSAGE 1; BASOPHIL # 0.1 10^3/ul (0.0-0.1); BASOPHILS % 0.4 % (0.0-2.0); EOSINOPHILS # 0.4 10^3/ul (0.0-0.5); EOSINOPHILS % 2.4 % (0.0-7.0); HEMATOCRIT 38.9 % (37.0-47.0); HEMOGLOBIN 11.1 g/dl (12.0-16.0); LYMPHOCYTES # 0.9 10^3/ul (0.8-2.9); LYMPHOCYTES % 4.9 % (15.0-51.0); MEAN CORPUSCULAR HEMOGLOBIN 27.2 pg (29.0-33.0); MEAN CORPUSCULAR HGB CONC 28.5 g/dl (32.0-37.0); MEAN CORPUSCULAR VOLUME 95.3 fl (82.0-101.0); MONOCYTE # 1.2 10^3/ul (0.3-0.9); MONOCYTES % 6.4 % (0.0-11.0); NEUTROPHIL # 15.8 10^3/ul (1.6-7.5); NEUTROPHILS % 85.5 % (39.0-77.0); NUCLEATED RED BLOOD CELLS% 0.2 /100WBC (0.0-0.0); PLATELET COUNT 188 10^3/UL (140-415); RED BLOOD COUNT 4.08 10^6/ul (4.20-5.40); RED CELL DISTRIBUTION WIDTH 17.6 % (11.5-14.5)
[2018-09-16 06:53] LABS: POSITIVE DIFF @See below
[2018-09-16 07:02] LABS: ALANINE AMINOTRANSFERASE 43 IU/L (13-69); ALBUMIN/GLOBULIN RATIO 1.25; ALKALINE PHOSPHATASE 126 IU/L (42-121); ANION GAP 9 (5-13); ASPARTATE AMINO TRANSFERASE 46 IU/L (15-46); BILIRUBIN,INDIRECT 0.6 mg/dl (0-1.1); BILIRUBIN,TOTAL 0.6 mg/dl (0.2-1.3); BLOOD UREA NITROGEN 25 mg/dl (7-20); CALCIUM 9.3 mg/dl (8.4-10.2); CARBON DIOXIDE 26 mmol/L (21-31); CHLORIDE 109 mmol/L (97-110); CREATININE 0.68 mg/dl (0.44-1.00); GLUCOSE 144 mg/dl (70-220); MAGNESIUM 2.1 mg/dl (1.7-2.5); POTASSIUM 4.1 mmol/L (3.5-5.1); SODIUM 144 mmol/L (135-144); TOTAL PROTEIN 7.2 g/dl (6.1-8.1)
[2018-09-16] MEDS ORDERED: VANCOMYCIN IV PER PHARMACY XX (08:00)
[2018-09-16] MEDS: PANTOPRAZOLE (EC) 40 MG TAB PO (08:25)
[2018-09-16] MEDS ORDERED: PENDING SANTYL ORDER FOR WOUND CARE XX (08:30)
[2018-09-16] MEDS: VANCOMYCIN 500 MG (PMX) 100 ML IVPB ×2 (08:42→21:02)
[2018-09-16] MEDS: ALBUTEROL/IPRATROPIUM (NEB) 3 ML AMP INH ×3 (08:59→19:49)
[2018-09-16] MEDS: CITALOPRAM 20 MG TAB PO (09:00)
[2018-09-16] MEDS: APIXABAN 5 MG TABLET PO ×2 (09:00→21:00)
[2018-09-16] MEDS: LOSARTAN 25 MG TAB PO (09:00)
[2018-09-16] MEDS: AMLODIPINE 10 MG TAB PO (09:00)
[2018-09-16] MEDS: ASPIRIN (EC) 81 MG TAB PO (09:00)
[2018-09-16] MEDS: BACLOFEN 10 MG TAB PO ×3 (09:00→21:00)
[2018-09-16] MEDS ORDERED: CEFEPIME 1GM/50 ML (PMX) 50 ML IVPB (09:00)
[2018-09-16] MEDS: RISPERIDONE 0.25 MG TAB PO (09:00)
[2018-09-16] MEDS: GABAPENTIN 300 MG CAP PO ×3 (09:00→21:00)
[2018-09-16 09:07] LABS: ADD MAN DIFF? NO
[2018-09-16] MEDS: METHYLPREDNISOLONE 40 MG INJ IV (09:07)
[2018-09-16 09:13] LABS: WHITE BLOOD COUNT 18.6 10^3/ul (4.8-10.8)
[2018-09-16 09:13] LABS: ABNORMAL IP MESSAGE 1; BASOPHIL # 0.1 10^3/ul (0.0-0.1); BASOPHILS % 0.3 % (0.0-2.0); EOSINOPHILS # 0.1 10^3/ul (0.0-0.5); EOSINOPHILS % 0.3 % (0.0-7.0); HEMATOCRIT 36.7 % (37.0-47.0); HEMOGLOBIN 10.8 g/dl (12.0-16.0); LYMPHOCYTES # 0.3 10^3/ul (0.8-2.9); LYMPHOCYTES % 1.5 % (15.0-51.0); MEAN CORPUSCULAR HEMOGLOBIN 27.6 pg (29.0-33.0); MEAN CORPUSCULAR HGB CONC 29.4 g/dl (32.0-37.0); MEAN CORPUSCULAR VOLUME 93.9 fl (82.0-101.0); MEAN PLATELET VOLUME 12.1 fl (7.4-10.4); MONOCYTE # 1.3 10^3/ul (0.3-0.9); MONOCYTES % 6.8 % (0.0-11.0); NEUTROPHIL # 16.8 10^3/ul (1.6-7.5); NEUTROPHILS % 90.6 % (39.0-77.0); PLATELET COUNT 179 10^3/UL (140-415); RED BLOOD COUNT 3.91 10^6/ul (4.20-5.40); RED CELL DISTRIBUTION WIDTH 17.5 % (11.5-14.5)
[2018-09-16 09:21] LABS: POSITIVE DIFF @See below
[2018-09-16 09:29] LABS: ALANINE AMINOTRANSFERASE 39 IU/L (13-69); ALBUMIN/GLOBULIN RATIO 1.29; ALKALINE PHOSPHATASE 122 IU/L (42-121); ANION GAP 10 (5-13); ASPARTATE AMINO TRANSFERASE 41 IU/L (15-46); BILIRUBIN,INDIRECT 0.7 mg/dl (0-1.1); BILIRUBIN,TOTAL 0.7 mg/dl (0.2-1.3); BLOOD UREA NITROGEN 24 mg/dl (7-20); CALCIUM 9.3 mg/dl (8.4-10.2); CARBON DIOXIDE 27 mmol/L (21-31); CHLORIDE 108 mmol/L (97-110); CREATININE 0.66 mg/dl (0.44-1.00); GLUCOSE 124 mg/dl (70-220); POTASSIUM 4.1 mmol/L (3.5-5.1); SODIUM 145 mmol/L (135-144); TOTAL PROTEIN 7.1 g/dl (6.1-8.1)
[2018-09-16] MEDS: CEFEPIME 2GM/50 ML IVPB ×2 (10:14→21:02)
[2018-09-16] MEDS: LIDOCAINE 1% (MPF) 5 ML VIAL SC (14:30)
[2018-09-16] MEDS: ARFORMOTEROL TARTRATE 15MCG/2 ML AMP INH (19:52)
[2018-09-16] MEDS: BUDESONIDE (NEB) 0.5MG/2ML AMP INH (19:52)
[2018-09-16] MEDS: ATORVASTATIN 80 MG TAB PO (21:00)
[2018-09-16] MEDS: traZODone 50 MG TAB PO (21:00)
[2018-09-16] MEDS: SENNA TAB PO (21:00)
[2018-09-16 21:42] LABS: AADO2 Arterial 113.7 mmHg (7.0-24.0); Allen Test ACCEPTAB; Arterial Base Excess 0.4 mmol/L (-3.0-3); Arterial COHb 0.8 % (0.0-3.0); Arterial Fraction of Oxyhgb 95.8 % (93.0-99.0); Arterial HCO3 24.7 mmol/L (22.0-26.0); Arterial MetHb 0.4 % (0.0-1.5); Arterial pCO2 38.8 mmhg (35-45); MODE NASAL CANNULA; Site Right Radial
[2018-09-17 06:08] LABS: ADD MAN DIFF? NO
[2018-09-17 06:12] LABS: ABNORMAL IP MESSAGE 1; BASOPHILS % 0.2 % (0.0-2.0); HEMATOCRIT 32.1 % (37.0-47.0); HEMOGLOBIN 9.6 g/dl (12.0-16.0); LYMPHOCYTES # 0.5 10^3/ul (0.8-2.9); LYMPHOCYTES % 2.5 % (15.0-51.0); MEAN CORPUSCULAR HEMOGLOBIN 27.7 pg (29.0-33.0); MEAN CORPUSCULAR HGB CONC 29.9 g/dl (32.0-37.0); MEAN CORPUSCULAR VOLUME 92.8 fl (82.0-101.0); MEAN PLATELET VOLUME 12.7 fl (7.4-10.4); MONOCYTES % 9.3 % (0.0-11.0); NEUTROPHIL # 18.9 10^3/ul (1.6-7.5); NEUTROPHILS % 87.4 % (39.0-77.0); NUCLEATED RED BLOOD CELLS% 0.1 /100WBC (0.0-0.0); PLATELET COUNT 148 10^3/UL (140-415); RED BLOOD COUNT 3.46 10^6/ul (4.20-5.40); RED CELL DISTRIBUTION WIDTH 17.8 % (11.5-14.5)
[2018-09-17 06:12] LABS: WHITE BLOOD COUNT 21.6 10^3/ul (4.8-10.8)
[2018-09-17 06:33] LABS: POSITIVE DIFF @See below
[2018-09-17] MEDS: PANTOPRAZOLE (EC) 40 MG TAB PO (07:00)
[2018-09-17 07:22] LABS: ANION GAP 6 (5-13); BLOOD UREA NITROGEN 23 mg/dl (7-20); CALCIUM 8.9 mg/dl (8.4-10.2); CARBON DIOXIDE 28 mmol/L (21-31); CHLORIDE 108 mmol/L (97-110); CREATININE 0.71 mg/dl (0.44-1.00); GLUCOSE 114 mg/dl (70-220); PHOSPHORUS 4.2 mg/dl (2.5-4.9); POTASSIUM 4.4 mmol/L (3.5-5.1); SODIUM 142 mmol/L (135-144)
[2018-09-17] MEDS: ARFORMOTEROL TARTRATE 15MCG/2 ML AMP INH ×2 (08:16→20:34)
[2018-09-17] MEDS: BUDESONIDE (NEB) 0.5MG/2ML AMP INH ×2 (08:16→20:42)
[2018-09-17] MEDS: ALBUTEROL/IPRATROPIUM (NEB) 3 ML AMP INH ×3 (08:16→20:24)
[2018-09-17] MEDS: METHYLPREDNISOLONE 40 MG INJ IV (09:15)
[2018-09-17] MEDS: CEFEPIME 2GM/50 ML IVPB ×2 (09:16→20:25)
[2018-09-17] MEDS: RISPERIDONE 0.25 MG TAB PO (09:19)
[2018-09-17] MEDS: ASPIRIN (EC) 81 MG TAB PO (09:20)
[2018-09-17] MEDS: BACLOFEN 10 MG TAB PO ×3 (09:20→20:27)
[2018-09-17] MEDS: AMLODIPINE 10 MG TAB PO (09:20)
[2018-09-17] MEDS: APIXABAN 5 MG TABLET PO ×2 (09:20→20:27)
[2018-09-17] MEDS: CITALOPRAM 20 MG TAB PO (09:20)
[2018-09-17] MEDS: LOSARTAN 25 MG TAB PO (09:21)
[2018-09-17] MEDS: GABAPENTIN 300 MG CAP PO ×3 (09:21→20:27)
[2018-09-17] MEDS: SOD CHLORIDE 0.45% 1,000 ML IV ×2 (09:43→23:29)
[2018-09-17] MEDS: ONDANSETRON 4 MG INJ IV (09:55)
[2018-09-17] MEDS: VANCOMYCIN 500 MG (PMX) 100 ML IVPB ×2 (09:56→20:26)
[2018-09-17] MEDS: traZODone 50 MG TAB PO (20:26)
[2018-09-17] MEDS: SENNA TAB PO (20:27)
[2018-09-17] MEDS: ATORVASTATIN 80 MG TAB PO (20:27)
[2018-09-17 20:54] LABS: VANCOMYCIN,TROUGH 9.3 ug/ml (10.0-20.0)
[2018-09-17] MEDS: HALOPERIDOL 5 MG INJ IM (23:29)
[2018-09-18] MEDS: HYDROCODONE/APAP (5/325) TAB PO (04:34)
[2018-09-18 06:19] LABS: ADD MAN DIFF? NO
[2018-09-18] MEDS: PANTOPRAZOLE (EC) 40 MG TAB PO (06:26)
[2018-09-18 06:27] LABS: ABNORMAL IP MESSAGE 1; BASOPHILS % 0.1 % (0.0-2.0); HEMATOCRIT 29.9 % (37.0-47.0); HEMOGLOBIN 8.6 g/dl (12.0-16.0); LYMPHOCYTES # 0.6 10^3/ul (0.8-2.9); LYMPHOCYTES % 3.8 % (15.0-51.0); MEAN CORPUSCULAR HEMOGLOBIN 27.2 pg (29.0-33.0); MEAN CORPUSCULAR HGB CONC 28.8 g/dl (32.0-37.0); MEAN CORPUSCULAR VOLUME 94.6 fl (82.0-101.0); MEAN PLATELET VOLUME 11.9 fl (7.4-10.4); MONOCYTE # 1.3 10^3/ul (0.3-0.9); MONOCYTES % 8.7 % (0.0-11.0); NEUTROPHILS % 86.7 % (39.0-77.0); NUCLEATED RED BLOOD CELLS% 0.1 /100WBC (0.0-0.0); PLATELET COUNT 140 10^3/UL (140-415); RED BLOOD COUNT 3.16 10^6/ul (4.20-5.40); RED CELL DISTRIBUTION WIDTH 17.4 % (11.5-14.5)
[2018-09-18 06:35] LABS: POSITIVE DIFF @See below
[2018-09-18 06:59] LABS: PHOSPHORUS 3.5 mg/dl (2.5-4.9)
[2018-09-18 06:59] LABS: MAGNESIUM 2.2 mg/dl (1.7-2.5)
[2018-09-18 07:35] LABS: ANION GAP 1 (5-13); BLOOD UREA NITROGEN 23 mg/dl (7-20); CALCIUM 8.8 mg/dl (8.4-10.2); CARBON DIOXIDE 31 mmol/L (21-31); CHLORIDE 106 mmol/L (97-110); CREATININE 0.72 mg/dl (0.44-1.00); GLUCOSE 106 mg/dl (70-220); POTASSIUM 4.6 mmol/L (3.5-5.1); SODIUM 138 mmol/L (135-144)
[2018-09-18] MEDS: APIXABAN 5 MG TABLET PO ×2 (08:38→20:10)
[2018-09-18] MEDS: METHYLPREDNISOLONE 40 MG INJ IV (08:38)
[2018-09-18] MEDS: LOSARTAN 25 MG TAB PO (08:39)
[2018-09-18] MEDS: AMLODIPINE 10 MG TAB PO (08:39)
[2018-09-18] MEDS: GABAPENTIN 300 MG CAP PO ×3 (08:39→20:10)
[2018-09-18] MEDS: CITALOPRAM 20 MG TAB PO (08:39)
[2018-09-18] MEDS: BACLOFEN 10 MG TAB PO ×3 (08:40→20:11)
[2018-09-18] MEDS: ASPIRIN (EC) 81 MG TAB PO (08:40)
[2018-09-18] MEDS: CEFEPIME 2GM/50 ML IVPB ×2 (08:50→22:01)
[2018-09-18] MEDS: RISPERIDONE 0.25 MG TAB PO (08:50)
[2018-09-18] MEDS: BUDESONIDE (NEB) 0.5MG/2ML AMP INH ×2 (09:18→20:31)
[2018-09-18] MEDS: ARFORMOTEROL TARTRATE 15MCG/2 ML AMP INH ×2 (09:18→20:32)
[2018-09-18] MEDS: ALBUTEROL/IPRATROPIUM (NEB) 3 ML AMP INH ×3 (09:18→20:31)
[2018-09-18] MEDS: VANCOMYCIN 750 MG (PMX) 250 ML IVPB ×2 (09:34→20:09)
[2018-09-18] MEDS: SOD CHLORIDE 0.45% 1,000 ML IV (12:40)
[2018-09-18] MEDS: traZODone 50 MG TAB PO (20:10)
[2018-09-18] MEDS: ATORVASTATIN 80 MG TAB PO (20:10)
[2018-09-18] MEDS: SENNA TAB PO (20:12)
[2018-09-19] MEDS: SOD CHLORIDE 0.45% 1,000 ML IV ×2 (02:00→08:33)
[2018-09-19] MEDS: GUAIFENESIN 20 MG/ML 5ML CUP PO (04:27)
[2018-09-19] MEDS: PANTOPRAZOLE (EC) 40 MG TAB PO (06:31)
[2018-09-19 06:43] LABS: ADD MAN DIFF? NO
[2018-09-19 06:56] LABS: ABNORMAL IP MESSAGE 1; BASOPHILS % 0.2 % (0.0-2.0); EOSINOPHILS % 0.1 % (0.0-7.0); HEMATOCRIT 34.4 % (37.0-47.0); HEMOGLOBIN 9.8 g/dl (12.0-16.0); LYMPHOCYTES # 0.7 10^3/ul (0.8-2.9); MEAN CORPUSCULAR HEMOGLOBIN 26.8 pg (29.0-33.0); MEAN CORPUSCULAR HGB CONC 28.5 g/dl (32.0-37.0); MEAN PLATELET VOLUME 12.2 fl (7.4-10.4); MONOCYTES % 7.4 % (0.0-11.0); NEUTROPHIL # 11.3 10^3/ul (1.6-7.5); NEUTROPHILS % 86.9 % (39.0-77.0); NUCLEATED RED BLOOD CELLS% 0.2 /100WBC (0.0-0.0); PLATELET COUNT 164 10^3/UL (140-415); RED BLOOD COUNT 3.66 10^6/ul (4.20-5.40); RED CELL DISTRIBUTION WIDTH 16.9 % (11.5-14.5)
[2018-09-19 06:59] LABS: POSITIVE DIFF @See below
[2018-09-19 07:21] LABS: ANION GAP 4 (5-13); BLOOD UREA NITROGEN 24 mg/dl (7-20); CALCIUM 9.1 mg/dl (8.4-10.2); CARBON DIOXIDE 28 mmol/L (21-31); CHLORIDE 107 mmol/L (97-110); CREATININE 0.74 mg/dl (0.44-1.00); GLUCOSE 94 mg/dl (70-220); POTASSIUM 4.9 mmol/L (3.5-5.1); SODIUM 139 mmol/L (135-144)
[2018-09-19 07:26] LABS: PHOSPHORUS 3.3 mg/dl (2.5-4.9)
[2018-09-19 07:26] LABS: MAGNESIUM 2.2 mg/dl (1.7-2.5)
[2018-09-19] MEDS: ALBUTEROL/IPRATROPIUM (NEB) 3 ML AMP INH ×3 (08:08→23:55)
[2018-09-19] MEDS: BUDESONIDE (NEB) 0.5MG/2ML AMP INH ×2 (08:09→22:25)
[2018-09-19] MEDS: ARFORMOTEROL TARTRATE 15MCG/2 ML AMP INH ×2 (08:09→22:18)
[2018-09-19] MEDS: BACLOFEN 10 MG TAB PO ×3 (08:30→20:32)
[2018-09-19] MEDS: GABAPENTIN 300 MG CAP PO ×3 (08:30→20:34)
[2018-09-19] MEDS: ASPIRIN (EC) 81 MG TAB PO (08:30)
[2018-09-19] MEDS: VANCOMYCIN 750 MG (PMX) 250 ML IVPB ×2 (08:30→21:57)
[2018-09-19] MEDS: METHYLPREDNISOLONE 40 MG INJ IV (08:30)
[2018-09-19] MEDS: AMLODIPINE 10 MG TAB PO (08:31)
[2018-09-19] MEDS: CITALOPRAM 20 MG TAB PO (08:31)
[2018-09-19] MEDS: LOSARTAN 25 MG TAB PO (08:31)
[2018-09-19] MEDS: APIXABAN 5 MG TABLET PO ×2 (08:31→20:45)
[2018-09-19] MEDS: RISPERIDONE 0.25 MG TAB PO (08:33)
[2018-09-19] MEDS: CEFEPIME 2GM/50 ML IVPB ×2 (08:44→20:46)
[2018-09-19] MEDS: BARIUM SULFATE 135 ML (E-Z HD) PO (12:24)
[2018-09-19] MEDS: VANCOMYCIN LEVEL TROUGH*RX DRUG LEVEL ORDER REMINDER XX (20:00)
[2018-09-19] MEDS: ACETAMINOPHEN 325 MG TAB PO (20:33)
[2018-09-19] MEDS: SENNA TAB PO (20:33)
[2018-09-19] MEDS: traZODone 50 MG TAB PO (20:34)
[2018-09-19] MEDS: ATORVASTATIN 80 MG TAB PO (20:34)
[2018-09-19 20:50] LABS: VANCOMYCIN,TROUGH 13.7 ug/ml (10.0-20.0)
[2018-09-20 05:31] LABS: ADD MAN DIFF? NO
[2018-09-20 05:41] LABS: ABNORMAL IP MESSAGE 1; BASOPHILS % 0.1 % (0.0-2.0); EOSINOPHILS % 0.2 % (0.0-7.0); HEMATOCRIT 34.2 % (37.0-47.0); HEMOGLOBIN 9.8 g/dl (12.0-16.0); LYMPHOCYTES # 0.6 10^3/ul (0.8-2.9); LYMPHOCYTES % 6.3 % (15.0-51.0); MEAN CORPUSCULAR HEMOGLOBIN 26.9 pg (29.0-33.0); MEAN CORPUSCULAR HGB CONC 28.7 g/dl (32.0-37.0); MEAN PLATELET VOLUME 11.3 fl (7.4-10.4); MONOCYTE # 0.9 10^3/ul (0.3-0.9); MONOCYTES % 9.2 % (0.0-11.0); NEUTROPHIL # 8.5 10^3/ul (1.6-7.5); NEUTROPHILS % 83.5 % (39.0-77.0); PLATELET COUNT 155 10^3/UL (140-415); RED BLOOD COUNT 3.64 10^6/ul (4.20-5.40); RED CELL DISTRIBUTION WIDTH 16.4 % (11.5-14.5)
[2018-09-20 05:41] LABS: WHITE BLOOD COUNT 10.2 10^3/ul (4.8-10.8)
[2018-09-20 05:48] LABS: POSITIVE DIFF @See below
[2018-09-20 05:53] LABS: PHOSPHORUS 2.7 mg/dl (2.5-4.9)
[2018-09-20 05:53] LABS: MAGNESIUM 2.2 mg/dl (1.7-2.5)
[2018-09-20 06:00] LABS: ANION GAP 2 (5-13); BLOOD UREA NITROGEN 23 mg/dl (7-20); CALCIUM 9.2 mg/dl (8.4-10.2); CARBON DIOXIDE 32 mmol/L (21-31); CHLORIDE 106 mmol/L (97-110); CREATININE 0.72 mg/dl (0.44-1.00); GLUCOSE 94 mg/dl (70-220); POTASSIUM 4.8 mmol/L (3.5-5.1); SODIUM 140 mmol/L (135-144)
[2018-09-20 06:05] LABS: TROPONIN-I 0.045 ng/ml (0.000-0.120)
[2018-09-20] MEDS: APIXABAN 5 MG TABLET PO (08:36)
[2018-09-20] MEDS: ASPIRIN (EC) 81 MG TAB PO (08:36)
[2018-09-20] MEDS: GABAPENTIN 300 MG CAP PO ×2 (08:36→13:00)
[2018-09-20] MEDS: FAMOTIDINE 20 MG TAB PO (08:36)
[2018-09-20] MEDS: BACLOFEN 10 MG TAB PO ×2 (08:36→13:00)
[2018-09-20] MEDS: CITALOPRAM 20 MG TAB PO (08:36)
[2018-09-20] MEDS: CEFEPIME 2GM/50 ML IVPB (08:36)
[2018-09-20] MEDS: LOSARTAN 25 MG TAB PO (08:37)
[2018-09-20] MEDS: AMLODIPINE 10 MG TAB PO (08:37)
[2018-09-20] MEDS: BUDESONIDE (NEB) 0.5MG/2ML AMP INH (08:50)
[2018-09-20] MEDS: ARFORMOTEROL TARTRATE 15MCG/2 ML AMP INH (08:50)
[2018-09-20] MEDS: ALBUTEROL/IPRATROPIUM (NEB) 3 ML AMP INH ×2 (08:50→15:29)
[2018-09-20] MEDS: VANCOMYCIN 750 MG (PMX) 250 ML IVPB (09:18)
[2018-09-22] MEDS ORDERED: RISPERIDONE 0.25 MG TAB PO (09:00)
== END 2018-09-20 15:56 | DRG 871 ==
LOC: E/R 20:40 → 6WM 23:01
PROC: 02HV33Z Insertion of Infusion Device into Superior Vena Cava, Percutaneous Approach (ICD-10-PCS; principal; 2018-09-16)
PROC: B548ZZA Ultrasonography of Superior Vena Cava, Guidance (ICD-10-PCS; 2018-09-16)
DX: A41.9 Sepsis, unspecified organism (principal); J18.9 Pneumonia, unspecified organism; J96.01 Acute respiratory failure with hypoxia; G92 Toxic encephalopathy; C34.90 Malignant neoplasm of unspecified part of unspecified bronchus or lung; J44.0 Chronic obstructive pulmonary disease with (acute) lower respiratory infection; I47.2 Ventricular tachycardia; I48.91 Unspecified atrial fibrillation; I10 Essential (primary) hypertension; Z95.0 Presence of cardiac pacemaker; R65.20 Severe sepsis without septic shock; R62.7 Adult failure to thrive; Z68.25 Body mass index [BMI] 25.0-25.9, adult; I48.0 Paroxysmal atrial fibrillation; Z86.73 Personal history of transient ischemic attack (TIA), and cerebral infarction without residual deficits; D64.9 Anemia, unspecified; R13.10 Dysphagia, unspecified
CPT/HCPCS: 36415; 36569; 36600; 70450; 71045; 74230; 76937; 80048; 80053; 80202; 82803; 83735; 84100; 84484; 85025; 87040-91; 92526; 92610; 92611; 93005; 94640; 94644; 94664; 97116; 97162; 97530; 99285-25